=== PATIENT | male | born 1985 | race African-American/Black ===

== ENCOUNTER → 2020-04-12 | Day surgery (SDC) | payer MEDICARE, MEDICAID ==
[~2020-04-12] MED LIST: CARVEDILOL25 MG PO; LISINOPRIL40 MG PO; MINOXIDIL10 MG PO; NORCO5 PO; NORVASC5 MG PO; RENA-VITE RX T1 EACH PO; RENVELA800 MG PO; VITAMIN D21250 MC1 PO
[2020-04-12 14:38] LABS: ABSOLUTE EOSINOPHILS 0.3 thou/uL (0.0-0.7); ABSOLUTE LYMPHOCYTES 1.7 thou/uL (0.8-5.3); ABSOLUTE MONOCYTES 0.6 thou/uL (0.0-1.2); ABSOLUTE NEUTROPHILS 1.7 thou/uL (1.6-8.1); BASOPHILS 1.1 %; EOSINOPHILS 6.3 %; HEMATOCRIT 29.4 % (42.0-52.0); HEMOGLOBIN 9.7 gm/dL (14.0-18.0); LYMPHOCYTES 40.5 %; MCH 27.7 pg (26.0-34.0); MCV 84.1 fL (80.0-100.0); MONOCYTES 13.7 %; MPV 6.8 fl. (7.2-11.1); NUCLEATED RBCS 0 /100WBC; PLATELET COUNT* 175 thou/uL (150-400); POLYS 38.4 %; RBC 3.49 mil/uL (4.50-6.00); RDW-CV 16.6 % (10.5-14.5); WBC 4.3 thou/uL (4.0-11.0)
[2020-04-12 14:45] LABS: CREATININE 9.4 mg/dL (0.6-1.3); POTASSIUM 4.2 mmol/L (3.5-5.1)
--- NOTE | 2020-04-13 09:26 | EKG ---
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 04/13/20 0926 151 151 Matthew Monzon MD, [facility] /EPI
--- NOTE | 2020-04-15 09:15 | OP ---
[facility] [address] [place] [address] OPERATIVE REPORT Name: WHITNEYETRIUS Faye Room: [facility]#: [id number] Admission: 04/12/20 Attend Phys: Leland Angulo Discharge: Date of : 85 Report #: [id number] THIS REPORT FOR: cc: FAM - Family physician unknown FAM - Family physician unknown ~ Leland Angulo MD DATE OF SERVICE: 04/12/2020 PREOPERATIVE DIAGNOSIS: End-stage renal disease. POSTOPERATIVE DIAGNOSIS: End-stage renal disease. OPERATION: Laparoscopic placement of a tunneled intraperitoneal catheter. SURGEON: Leland Angulo MD ANESTHESIA: General. ESTIMATED BLOOD LOSS: Minimal. SPECIMEN: None. DESCRIPTION OF PROCEDURE: After informed consent was obtained, the patient was brought to the operating room and placed supine. SCDs were placed and working, preoperative antibiotics were administered, general anesthesia was induced. The abdomen was prepped and draped in the usual sterile fashion. A 5-mm incision was made in the left upper quadrant. A 5-mm trocar was placed under direct vision. Pneumoperitoneum was established. Left-sided 5-mm trocar was placed. An 8-mm trocar was placed in the left rectus sheath. A 62 cm Covidien catheter was then placed through the 8-mm port. The tip was then placed down in the pelvis using a grasper. The catheter was then tunneled into the left upper quadrant of the abdomen. Catheter flushed easily with 700 mL of heparinized normal saline. It drained easily as well. The ports were removed under direct vision. The skin was closed with a 4-0 Monocryl. Incisions were dressed with Steri-Strips and an occlusive dressing. COMPLICATIONS: [place] [address] OPERATIVE REPORT Name: JOJO EVANGELISTA Room: [facility]#: [id number] Admission: 04/12/20 Attend Phys: Leland Angulo Discharge: Date of : 85 Report #: [id number] DISPOSITION: The patient was taken to recovery in satisfactory condition. <ELECTRONICALLY SIGNED> By: Leland Angulo MD 04/15/20 0915 1618 [id number] Angulo MD /lilly
== END | disposition home or self-care (01) ==
LOC: M.SUR 09:12
PROVIDERS: ATTEND Surgery
DX: I12.0 Hypertensive chronic kidney disease with stage 5 chronic kidney disease or end stage renal disease (principal); N18.6 End stage renal disease; K21.9 Gastro-esophageal reflux disease without esophagitis; Z98.890 Other specified postprocedural states; Z79.899 Other long term (current) drug therapy; Z87.891 Personal history of nicotine dependence; Z88.8 Allergy status to other drugs, medicaments and biological substances